=== PATIENT | male | born 1975 | race Caucasian/White ===

== ENCOUNTER 2019-11-19 13:58 | Emergency (ER) | payer BC ==
[~2019-11-19] VITALS: Ht 188 cm; Wt 103.9 kg
[2019-11-19 14:08] VITALS: Ht 188 cm; Wt 103.9 kg
[2019-11-19 16:37] VITALS: BP 147/90
== END 2019-11-19 16:38 | disposition home or self-care (01) ==
LOC: ED 13:58
DX: F07.81 Postconcussional syndrome (principal); H52.10 Myopia, unspecified eye; R11.0 Nausea; W22.8XXA Striking against or struck by other objects, initial encounter; Y93.89 Activity, other specified; Y92.89 Other specified places as the place of occurrence of the external cause; Y99.8 Other external cause status
CPT/HCPCS: 82962